=== PATIENT | male | born 1970 | race Caucasian/White ===

== ENCOUNTER → 2019-11-11 | Outpatient (CLI) | payer BC ==
[~2019-11-11] MED LIST: FLEXERIL10 MG PO; PREDNICOT20 MG PO; VICODIN 5/500 505 MG PO
== END | disposition home or self-care (01) ==
LOC: RAD 10:36
DX: S13.4XXA Sprain of ligaments of cervical spine, initial encounter (principal); X58.XXXA Exposure to other specified factors, initial encounter; Y93.89 Activity, other specified; Y92.89 Other specified places as the place of occurrence of the external cause; Y99.8 Other external cause status

== ENCOUNTER 2021-07-06 20:05 | Inpatient (IN) | payer BC ==
[~2021-07-06] VITALS: Ht 175.2 cm; Wt 116.6 kg
[2021-07-06 20:23] VITALS: BP 122/74
[2021-07-06 20:44] LABS: HEMATOCRIT 42.8 % (42.0-52.0); MEAN CORPUSCULAR HGB 29.9 pg (27.0-31.0); MEAN CORPUSCULAR HGB CONC 33.6 g/dl (33.0-37.0); MEAN PLATELET VOLUME 10.5 fl (9.6-12.3); PLATELET COUNT AUTOMATED 95 10*3/uL (130-400); RED BLOOD COUNT 4.81 10*6/uL (4.50-5.90); RED CELL DISTRI WIDTH 13.3 % (0-14.5)
[2021-07-06 20:52] VITALS: BP 113/69
[2021-07-06 20:59] LABS: ALBUMIN 3.5 gm/dl (3.1-4.5); ALKALINE PHOSPHATASE 91 U/L (45-117); BUN 23 mg/dl (7-24); CHLORIDE 104 mmol/L (98-107); POTASSIUM 4.4 mmol/L (3.5-5.1); SGOT/AST 47 IU/L (3-35); SGPT/ALT 43 U/L (12-78); SODIUM 134 mmol/L (136-145); TOTAL PROTEIN 7.3 gm/dL (6.4-8.2); WHITE BLOOD COUNT 1.8 10*3/uL (4.8-10.8)
[2021-07-06 21:04] LABS: TOTAL CELLS COUNTED 100 #CELLS
[2021-07-06 21:05] LABS: BURR CELLS FEW
[2021-07-06 21:08] LABS: PLATELET SUFFICIENCY LOW (NORMAL)
[2021-07-06 22:30] VITALS: BP 127/86
[2021-07-06 23:10] VITALS: BP 139/80
[2021-07-06] MEDS ORDERED: GLUCOPHAGE500 MG PO (23:19)
[2021-07-07] VITALS: BP 104/62
[2021-07-07 06:09] LABS: HEMATOCRIT 44.4 % (42.0-52.0); LYMPH # 0.4 10*3/uL (1.3-4.4); LYMPH % 18.3 % (27.0-41.0); MEAN CELL VOLUME 87.6 fl (80.0-94.0); MEAN CORPUSCULAR HGB 29.6 pg (27.0-31.0); MEAN CORPUSCULAR HGB CONC 33.8 g/dl (33.0-37.0); MEAN PLATELET VOLUME 10.5 fl (9.6-12.3); MONO # 0.1 10*3/uL (0.1-1.0); MONO % 6.4 % (3.0-9.0); NEUT # 1.5 10*3/uL (2.3-7.9); NEUT % 74.8 % (47.0-73.0); PLATELET COUNT AUTOMATED 99 10*3/uL (130-400); RED BLOOD COUNT 5.07 10*6/uL (4.50-5.90); RED CELL DISTRI WIDTH 13.1 % (0-14.5)
[2021-07-07 06:37] LABS: ALBUMIN 3.5 gm/dl (3.1-4.5); BUN 25 mg/dl (7-24); CHLORIDE 104 mmol/L (98-107); CREATININE 1.29 mg/dL (0.70-1.30); POTASSIUM 5.1 mmol/L (3.5-5.1); SGOT/AST 54 IU/L (3-35); SGPT/ALT 46 U/L (12-78); SODIUM 135 mmol/L (136-145); TOTAL PROTEIN 7.7 gm/dL (6.4-8.2)
[2021-07-07 06:41] LABS: ALKALINE PHOSPHATASE 100 U/L (45-117); LDH 334 U/L (87-241)
[2021-07-07 08:00] VITALS: BP 139/83
[2021-07-07 12:00] VITALS: BP 119/57
[2021-07-07 16:00] VITALS: BP 122/81
[2021-07-07 20:00] VITALS: BP 147/80
[2021-07-07 20:12] LABS: ABG BASE EXCESS 0.2 mmol/L (-2.0-2.0); ARTERIAL BLOOD GAS PH 7.415 (7.35-7.45); ARTERIAL BLOOD GAS PO2 51.8 (80-90)
[2021-07-08] VITALS: BP 127/63
[2021-07-08 06:37] LABS: HEMATOCRIT 44.7 % (42.0-52.0); LYMPH # 0.4 10*3/uL (1.3-4.4); LYMPH % 9.7 % (27.0-41.0); MEAN CELL VOLUME 87.8 fl (80.0-94.0); MEAN CORPUSCULAR HGB 30.1 pg (27.0-31.0); MEAN CORPUSCULAR HGB CONC 34.2 g/dl (33.0-37.0); MEAN PLATELET VOLUME 9.9 fl (9.6-12.3); MONO # 0.5 10*3/uL (0.1-1.0); MONO % 12.2 % (3.0-9.0); NEUT % 77.1 % (47.0-73.0); PLATELET COUNT AUTOMATED 130 10*3/uL (130-400); RED BLOOD COUNT 5.09 10*6/uL (4.50-5.90); RED CELL DISTRI WIDTH 13.1 % (0-14.5); WHITE BLOOD COUNT 3.9 10*3/uL (4.8-10.8)
[2021-07-08 06:50] LABS: ALBUMIN 3.3 gm/dl (3.1-4.5); CHLORIDE 105 mmol/L (98-107); POTASSIUM 4.6 mmol/L (3.5-5.1); SODIUM 138 mmol/L (136-145)
[2021-07-08 06:56] LABS: ALKALINE PHOSPHATASE 105 U/L (45-117); CREATININE 1.26 mg/dL (0.70-1.30); SGOT/AST 63 IU/L (3-35); SGPT/ALT 47 U/L (12-78); TOTAL PROTEIN 7.4 gm/dL (6.4-8.2)
[2021-07-08 07:02] LABS: BUN 37 mg/dl (7-24)
[2021-07-08 07:49] LABS: ABG BASE EXCESS -1.9 mmol/L (-2.0-2.0); ARTERIAL BLOOD GAS PH 7.415 (7.35-7.45); ARTERIAL BLOOD GAS PO2 59.4 (80-90)
[2021-07-08 08:00] VITALS: BP 140/88
[2021-07-08 12:00] VITALS: BP 117/78
[2021-07-08 16:00] VITALS: BP 111/72
[2021-07-08 20:00] VITALS: BP 149/90
[2021-07-09] VITALS: BP 134/78
[2021-07-09 02:21] LABS: ARTERIAL BLOOD GAS PH 7.412 (7.35-7.45); ARTERIAL BLOOD GAS PO2 58.9 (80-90)
[2021-07-09 03:52] VITALS: BP 135/95
[2021-07-09 06:10] LABS: ALBUMIN 3.4 gm/dl (3.1-4.5); ALKALINE PHOSPHATASE 108 U/L (45-117); BUN 43 mg/dl (7-24); CHLORIDE 105 mmol/L (98-107); CREATININE 1.32 mg/dL (0.70-1.30); POTASSIUM 4.3 mmol/L (3.5-5.1); SGOT/AST 53 IU/L (3-35); SGPT/ALT 44 U/L (12-78); SODIUM 139 mmol/L (136-145); TOTAL PROTEIN 7.8 gm/dL (6.4-8.2)
[2021-07-09 06:44] LABS: BASO % 0.2 % (0.0-1.0); HEMATOCRIT 46.8 % (42.0-52.0); LYMPH # 0.5 10*3/uL (1.3-4.4); LYMPH % 10.5 % (27.0-41.0); MEAN CELL VOLUME 90.2 fl (80.0-94.0); MEAN CORPUSCULAR HGB 29.9 pg (27.0-31.0); MEAN CORPUSCULAR HGB CONC 33.1 g/dl (33.0-37.0); MEAN PLATELET VOLUME 10.1 fl (9.6-12.3); MONO # 0.8 10*3/uL (0.1-1.0); MONO % 17.8 % (3.0-9.0); NEUT # 3.3 10*3/uL (2.3-7.9); NEUT % 70.4 % (47.0-73.0); PLATELET COUNT AUTOMATED 162 10*3/uL (130-400); RED BLOOD COUNT 5.19 10*6/uL (4.50-5.90); RED CELL DISTRI WIDTH 13.2 % (0-14.5); WHITE BLOOD COUNT 4.7 10*3/uL (4.8-10.8)
[2021-07-09 08:00] VITALS: BP 123/76
[2021-07-09 12:00] VITALS: BP 125/70
[2021-07-09 16:00] VITALS: BP 169/88
[2021-07-09 20:00] VITALS: BP 165/80
[2021-07-10] VITALS: BP 165/80
[2021-07-10 04:00] VITALS: BP 145/51
[2021-07-10 06:01] LABS: HEMATOCRIT 45.9 % (42.0-52.0); MEAN CELL VOLUME 89.3 fl (80.0-94.0); MEAN CORPUSCULAR HGB CONC 33.6 g/dl (33.0-37.0); PLATELET COUNT AUTOMATED 180 10*3/uL (130-400); RED BLOOD COUNT 5.14 10*6/uL (4.50-5.90); WHITE BLOOD COUNT 5.1 10*3/uL (4.8-10.8)
[2021-07-10 06:16] LABS: ALBUMIN 3.2 gm/dl (3.1-4.5); ALKALINE PHOSPHATASE 98 U/L (45-117); BUN 40 mg/dl (7-24); CHLORIDE 105 mmol/L (98-107); CPK 168 U/L (39-308); CREATININE 1.28 mg/dL (0.70-1.30); LDH 418 U/L (87-241); POTASSIUM 4.2 mmol/L (3.5-5.1); SGOT/AST 36 IU/L (3-35); SGPT/ALT 41 U/L (12-78); SODIUM 140 mmol/L (136-145); TOTAL PROTEIN 7.3 gm/dL (6.4-8.2)
[2021-07-10 07:41] LABS: PLATELET SUFFICIENCY NORMAL (NORMAL); TOTAL CELLS COUNTED 100 #CELLS
[2021-07-10 08:10] LABS: ABG BASE EXCESS 0.7 mmol/L (-2.0-2.0); ARTERIAL BLOOD GAS PH 7.456 (7.35-7.45)
[2021-07-10 08:12] VITALS: BP 155/88
[2021-07-10 12:00] VITALS: BP 131/66
[2021-07-10 16:00] VITALS: BP 123/70
[2021-07-10 20:00] VITALS: BP 114/78
[2021-07-11] VITALS: BP 138/68
[2021-07-11 04:00] VITALS: BP 128/68
[2021-07-11 06:05] LABS: ALBUMIN 2.8 gm/dl (3.1-4.5); ALKALINE PHOSPHATASE 89 U/L (45-117); BUN 36 mg/dl (7-24); CHLORIDE 105 mmol/L (98-107); CPK 158 U/L (39-308); CREATININE 1.19 mg/dL (0.70-1.30); LDH 363 U/L (87-241); POTASSIUM 4.1 mmol/L (3.5-5.1); SGOT/AST 27 IU/L (3-35); SGPT/ALT 36 U/L (12-78); SODIUM 138 mmol/L (136-145); TOTAL PROTEIN 6.9 gm/dL (6.4-8.2)
[2021-07-11 06:10] LABS: BASO % 0.1 % (0.0-1.0); HEMATOCRIT 44.6 % (42.0-52.0); LYMPH # 0.5 10*3/uL (1.3-4.4); MEAN CELL VOLUME 87.8 fl (80.0-94.0); MEAN CORPUSCULAR HGB 29.9 pg (27.0-31.0); MEAN CORPUSCULAR HGB CONC 34.1 g/dl (33.0-37.0); MEAN PLATELET VOLUME 9.8 fl (9.6-12.3); MONO # 0.8 10*3/uL (0.1-1.0); MONO % 10.9 % (3.0-9.0); NEUT # 5.7 10*3/uL (2.3-7.9); NEUT % 80.9 % (47.0-73.0); PLATELET COUNT AUTOMATED 170 10*3/uL (130-400); RED BLOOD COUNT 5.08 10*6/uL (4.50-5.90); RED CELL DISTRI WIDTH 12.8 % (0-14.5); WHITE BLOOD COUNT 7.1 10*3/uL (4.8-10.8)
[2021-07-11 08:00] VITALS: BP 135/75
[2021-07-11 08:43] LABS: ARTERIAL BLOOD GAS PH 7.462 (7.35-7.45); ARTERIAL BLOOD GAS PO2 52.3 (80-90)
[2021-07-11 12:00] VITALS: BP 121/73
[2021-07-11 16:00] VITALS: BP 129/74
[2021-07-11 20:00] VITALS: BP 140/76
[2021-07-12] VITALS: BP 138/68
[2021-07-12 04:00] VITALS: BP 140/78
[2021-07-12 05:16] LABS: ALBUMIN 2.7 gm/dl (3.1-4.5); BUN 37 mg/dl (7-24); CHLORIDE 106 mmol/L (98-107); CREATININE 1.06 mg/dL (0.70-1.30); LDH 365 U/L (87-241); POTASSIUM 4.3 mmol/L (3.5-5.1); SGOT/AST 20 IU/L (3-35); SGPT/ALT 35 U/L (12-78); SODIUM 137 mmol/L (136-145); TOTAL PROTEIN 6.8 gm/dL (6.4-8.2)
[2021-07-12 05:17] LABS: ALKALINE PHOSPHATASE 91 U/L (45-117)
[2021-07-12 05:27] LABS: CPK 105 U/L (39-308)
[2021-07-12 06:17] LABS: BASO % 0.2 % (0.0-1.0); EOS % 0.1 % (1.0-4.0); HEMATOCRIT 46.8 % (42.0-52.0); LYMPH # 0.5 10*3/uL (1.3-4.4); LYMPH % 4.9 % (27.0-41.0); MEAN CELL VOLUME 88.1 fl (80.0-94.0); MEAN CORPUSCULAR HGB 29.9 pg (27.0-31.0); MONO # 0.9 10*3/uL (0.1-1.0); MONO % 8.8 % (3.0-9.0); NEUT # 8.6 10*3/uL (2.3-7.9); NEUT % 84.4 % (47.0-73.0); PLATELET COUNT AUTOMATED 205 10*3/uL (130-400); RED BLOOD COUNT 5.31 10*6/uL (4.50-5.90); RED CELL DISTRI WIDTH 12.6 % (0-14.5); WHITE BLOOD COUNT 10.2 10*3/uL (4.8-10.8)
[2021-07-12 08:00] VITALS: BP 125/54
[2021-07-12 12:00] VITALS: BP 122/53
[2021-07-12 16:00] VITALS: BP 137/65
[2021-07-12 20:00] VITALS: BP 154/90
[2021-07-13] VITALS: BP 122/52
[2021-07-13 04:00] VITALS: BP 138/75
[2021-07-13 06:16] LABS: BASO % 0.2 % (0.0-1.0); EOS % 0.3 % (1.0-4.0); HEMATOCRIT 44.3 % (42.0-52.0); LYMPH # 0.5 10*3/uL (1.3-4.4); LYMPH % 4.4 % (27.0-41.0); MEAN CELL VOLUME 87.4 fl (80.0-94.0); MEAN CORPUSCULAR HGB 29.8 pg (27.0-31.0); MEAN CORPUSCULAR HGB CONC 34.1 g/dl (33.0-37.0); MEAN PLATELET VOLUME 10.2 fl (9.6-12.3); MONO # 0.8 10*3/uL (0.1-1.0); MONO % 6.9 % (3.0-9.0); NEUT % 86.7 % (47.0-73.0); PLATELET COUNT AUTOMATED 206 10*3/uL (130-400); RED BLOOD COUNT 5.07 10*6/uL (4.50-5.90); RED CELL DISTRI WIDTH 12.8 % (0-14.5); WHITE BLOOD COUNT 11.5 10*3/uL (4.8-10.8)
[2021-07-13 06:39] LABS: ALBUMIN 2.6 gm/dl (3.1-4.5); BUN 36 mg/dl (7-24); CHLORIDE 104 mmol/L (98-107); CREATININE 1.04 mg/dL (0.70-1.30); LDH 352 U/L (87-241); POTASSIUM 3.9 mmol/L (3.5-5.1); SGOT/AST 19 IU/L (3-35); SGPT/ALT 33 U/L (12-78); SODIUM 139 mmol/L (136-145); TOTAL PROTEIN 6.6 gm/dL (6.4-8.2)
[2021-07-13 06:40] LABS: ALKALINE PHOSPHATASE 85 U/L (45-117)
[2021-07-13 08:00] VITALS: BP 139/68
[2021-07-13 12:00] VITALS: BP 110/56
[2021-07-13 16:00] VITALS: BP 143/70
[2021-07-13 20:00] VITALS: BP 136/57
[2021-07-14] VITALS: BP 121/81
[2021-07-14 04:00] VITALS: BP 108/59
[2021-07-14 05:22] LABS: ALBUMIN 2.6 gm/dl (3.1-4.5); BUN 31 mg/dl (7-24); CHLORIDE 102 mmol/L (98-107); POTASSIUM 3.8 mmol/L (3.5-5.1); SODIUM 135 mmol/L (136-145)
[2021-07-14 05:26] LABS: ALKALINE PHOSPHATASE 73 U/L (45-117); CPK 147 U/L (39-308); CREATININE 0.89 mg/dL (0.70-1.30); LDH 299 U/L (87-241); SGOT/AST 16 IU/L (3-35); SGPT/ALT 32 U/L (12-78); TOTAL PROTEIN 6.7 gm/dL (6.4-8.2)
[2021-07-14 06:15] LABS: BASO % 0.1 % (0.0-1.0); EOS # 0.1 10*3/uL (0.0-0.4); EOS % 0.4 % (1.0-4.0); HEMATOCRIT 41.8 % (42.0-52.0); LYMPH # 0.5 10*3/uL (1.3-4.4); LYMPH % 3.9 % (27.0-41.0); MEAN CELL VOLUME 86.4 fl (80.0-94.0); MEAN CORPUSCULAR HGB 30.4 pg (27.0-31.0); MEAN CORPUSCULAR HGB CONC 35.2 g/dl (33.0-37.0); MEAN PLATELET VOLUME 10.5 fl (9.6-12.3); MONO # 0.9 10*3/uL (0.1-1.0); MONO % 7.6 % (3.0-9.0); NEUT % 86.6 % (47.0-73.0); PLATELET COUNT AUTOMATED 209 10*3/uL (130-400); RED BLOOD COUNT 4.84 10*6/uL (4.50-5.90); RED CELL DISTRI WIDTH 12.6 % (0-14.5); WHITE BLOOD COUNT 11.6 10*3/uL (4.8-10.8)
[2021-07-14 08:00] VITALS: BP 109/82
[2021-07-14 12:00] VITALS: BP 117/64
[2021-07-14 16:00] VITALS: BP 120/66
[2021-07-14 20:00] VITALS: BP 117/59
[2021-07-15] VITALS: BP 108/57
[2021-07-15 04:00] VITALS: BP 104/48
[2021-07-15 05:38] LABS: ALBUMIN 2.5 gm/dl (3.1-4.5); ALKALINE PHOSPHATASE 69 U/L (45-117); BUN 30 mg/dl (7-24); CHLORIDE 102 mmol/L (98-107); CPK 119 U/L (39-308); CREATININE 0.98 mg/dL (0.70-1.30); LDH 283 U/L (87-241); POTASSIUM 3.9 mmol/L (3.5-5.1); SGOT/AST 21 IU/L (3-35); SGPT/ALT 33 U/L (12-78); SODIUM 134 mmol/L (136-145); TOTAL PROTEIN 6.7 gm/dL (6.4-8.2)
[2021-07-15 06:05] LABS: BASO % 0.1 % (0.0-1.0); EOS # 0.1 10*3/uL (0.0-0.4); EOS % 0.7 % (1.0-4.0); LYMPH # 0.5 10*3/uL (1.3-4.4); LYMPH % 4.2 % (27.0-41.0); MEAN CELL VOLUME 86.8 fl (80.0-94.0); MEAN CORPUSCULAR HGB 29.8 pg (27.0-31.0); MEAN CORPUSCULAR HGB CONC 34.3 g/dl (33.0-37.0); MEAN PLATELET VOLUME 10.6 fl (9.6-12.3); MONO # 1.3 10*3/uL (0.1-1.0); MONO % 11.3 % (3.0-9.0); NEUT # 9.7 10*3/uL (2.3-7.9); NEUT % 82.4 % (47.0-73.0); PLATELET COUNT AUTOMATED 237 10*3/uL (130-400); RED BLOOD COUNT 4.84 10*6/uL (4.50-5.90); RED CELL DISTRI WIDTH 12.7 % (0-14.5); WHITE BLOOD COUNT 11.8 10*3/uL (4.8-10.8)
[2021-07-15 08:00] VITALS: BP 110/62
[2021-07-15 12:00] VITALS: BP 113/64
[2021-07-15 20:00] VITALS: BP 131/78
[2021-07-16] VITALS: BP 115/66
[2021-07-16 06:53] LABS: BASO % 0.1 % (0.0-1.0); EOS % 0.5 % (1.0-4.0); HEMATOCRIT 42.2 % (42.0-52.0); LYMPH # 0.4 10*3/uL (1.3-4.4); LYMPH % 4.8 % (27.0-41.0); MEAN CELL VOLUME 86.8 fl (80.0-94.0); MEAN CORPUSCULAR HGB 29.4 pg (27.0-31.0); MEAN CORPUSCULAR HGB CONC 33.9 g/dl (33.0-37.0); MEAN PLATELET VOLUME 10.4 fl (9.6-12.3); MONO # 1.1 10*3/uL (0.1-1.0); MONO % 12.4 % (3.0-9.0); NEUT # 7.1 10*3/uL (2.3-7.9); NEUT % 81.2 % (47.0-73.0); PLATELET COUNT AUTOMATED 222 10*3/uL (130-400); RED BLOOD COUNT 4.86 10*6/uL (4.50-5.90); RED CELL DISTRI WIDTH 12.6 % (0-14.5); WHITE BLOOD COUNT 8.8 10*3/uL (4.8-10.8)
[2021-07-16 07:24] LABS: ALBUMIN 2.5 gm/dl (3.1-4.5); BUN 28 mg/dl (7-24); CHLORIDE 103 mmol/L (98-107); CREATININE 0.88 mg/dL (0.70-1.30); POTASSIUM 3.9 mmol/L (3.5-5.1); SGOT/AST 23 IU/L (3-35); SGPT/ALT 43 U/L (12-78); SODIUM 136 mmol/L (136-145); TOTAL PROTEIN 6.7 gm/dL (6.4-8.2)
[2021-07-16 07:27] LABS: ALKALINE PHOSPHATASE 66 U/L (45-117); CPK 111 U/L (39-308); LDH 255 U/L (87-241)
[2021-07-16 08:00] VITALS: BP 101/46
[2021-07-16 12:00] VITALS: BP 125/68
[2021-07-16 16:00] VITALS: BP 136/73
[2021-07-16 20:00] VITALS: BP 125/85
[2021-07-17] VITALS: BP 124/54
[2021-07-17 06:06] LABS: BUN 26 mg/dl (7-24); CHLORIDE 103 mmol/L (98-107); CREATININE 0.95 mg/dL (0.70-1.30); POTASSIUM 3.8 mmol/L (3.5-5.1); SODIUM 135 mmol/L (136-145)
[2021-07-17 06:20] LABS: BASO % 0.1 % (0.0-1.0); EOS % 0.5 % (1.0-4.0); HEMATOCRIT 38.1 % (42.0-52.0); LYMPH # 0.6 10*3/uL (1.3-4.4); LYMPH % 6.6 % (27.0-41.0); MEAN CELL VOLUME 86.2 fl (80.0-94.0); MEAN CORPUSCULAR HGB 30.1 pg (27.0-31.0); MEAN CORPUSCULAR HGB CONC 34.9 g/dl (33.0-37.0); MEAN PLATELET VOLUME 10.8 fl (9.6-12.3); MONO # 1.2 10*3/uL (0.1-1.0); MONO % 14.6 % (3.0-9.0); NEUT # 6.6 10*3/uL (2.3-7.9); NEUT % 77.4 % (47.0-73.0); PLATELET COUNT AUTOMATED 223 10*3/uL (130-400); RED BLOOD COUNT 4.42 10*6/uL (4.50-5.90); RED CELL DISTRI WIDTH 12.4 % (0-14.5); WHITE BLOOD COUNT 8.5 10*3/uL (4.8-10.8)
[2021-07-17 08:00] VITALS: BP 100/45
[2021-07-17] MEDS ORDERED: PREDNISONE10 MG PO (12:59)
== END 2021-07-17 16:15 | disposition home or self-care (01) | DRG 871 ==
LOC: ED 20:05 → EDHOLD 21:32 → 4E 21:32 → ICCU 07-09 03:04 → 4E 07-15 14:44
PROVIDERS: Hospitalist; Internal Medicine; Internal Medicine Critical Care Medicine; Student in an Organized Health Care Education/Training Program; ADMIT Family Medicine; ATTEND Family Medicine
PROC: 5A0935A Assistance with Respiratory Ventilation, Less than 24 Consecutive Hours, High Flow/Velocity Cannula (ICD-10-PCS; principal; 2021-07-07)
PROC: 5A09357 Assistance with Respiratory Ventilation, Less than 24 Consecutive Hours, Continuous Positive Airway Pressure (ICD-10-PCS; 2021-07-08)
PROC: XW033E5 Introduction of Remdesivir Anti-infective into Peripheral Vein, Percutaneous Approach, New Technology Group 5 (ICD-10-PCS; 2021-07-08)
PROC: 5A09457 Assistance with Respiratory Ventilation, 24-96 Consecutive Hours, Continuous Positive Airway Pressure (ICD-10-PCS; 2021-07-09)
PROC: 5A0935A Assistance with Respiratory Ventilation, Less than 24 Consecutive Hours, High Flow/Velocity Cannula (ICD-10-PCS; 2021-07-10)
PROC: 5A0935A Assistance with Respiratory Ventilation, Less than 24 Consecutive Hours, High Flow/Velocity Cannula (ICD-10-PCS; 2021-07-11)
PROC: 5A09357 Assistance with Respiratory Ventilation, Less than 24 Consecutive Hours, Continuous Positive Airway Pressure (ICD-10-PCS; 2021-07-11)
PROC: 5A0935A Assistance with Respiratory Ventilation, Less than 24 Consecutive Hours, High Flow/Velocity Cannula (ICD-10-PCS; 2021-07-12)
PROC: 5A09357 Assistance with Respiratory Ventilation, Less than 24 Consecutive Hours, Continuous Positive Airway Pressure (ICD-10-PCS; 2021-07-12)
PROC: 5A0935A Assistance with Respiratory Ventilation, Less than 24 Consecutive Hours, High Flow/Velocity Cannula (ICD-10-PCS; 2021-07-13)
PROC: 5A09357 Assistance with Respiratory Ventilation, Less than 24 Consecutive Hours, Continuous Positive Airway Pressure (ICD-10-PCS; 2021-07-13)
PROC: 5A0935A Assistance with Respiratory Ventilation, Less than 24 Consecutive Hours, High Flow/Velocity Cannula (ICD-10-PCS; 2021-07-14)
PROC: 5A09357 Assistance with Respiratory Ventilation, Less than 24 Consecutive Hours, Continuous Positive Airway Pressure (ICD-10-PCS; 2021-07-14)
PROC: 5A0935A Assistance with Respiratory Ventilation, Less than 24 Consecutive Hours, High Flow/Velocity Cannula (ICD-10-PCS; 2021-07-15)
PROC: 5A09357 Assistance with Respiratory Ventilation, Less than 24 Consecutive Hours, Continuous Positive Airway Pressure (ICD-10-PCS; 2021-07-15)
PROC: 5A0945A Assistance with Respiratory Ventilation, 24-96 Consecutive Hours, High Flow/Velocity Cannula (ICD-10-PCS; 2021-07-16)
PROC: 5A09357 Assistance with Respiratory Ventilation, Less than 24 Consecutive Hours, Continuous Positive Airway Pressure (ICD-10-PCS; 2021-07-16)
DX: A41.9 Sepsis, unspecified organism (principal); U07.1 COVID-19; J12.82 Pneumonia due to coronavirus disease 2019; N17.0 Acute kidney failure with tubular necrosis; J96.01 Acute respiratory failure with hypoxia; E87.1 Hypo-osmolality and hyponatremia; N18.31 Chronic kidney disease, stage 3a; E11.22 Type 2 diabetes mellitus with diabetic chronic kidney disease; E11.65 Type 2 diabetes mellitus with hyperglycemia; R74.01 Elevation of levels of liver transaminase levels; Z88.1 Allergy status to other antibiotic agents; Z88.0 Allergy status to penicillin; Z79.84 Long term (current) use of oral hypoglycemic drugs; T38.0X5A Adverse effect of glucocorticoids and synthetic analogues, initial encounter; Y92.89 Other specified places as the place of occurrence of the external cause

== ENCOUNTER 2022-08-12 08:17 | Emergency (ER) | payer OTHER, BC ==
[~2022-08-12] VITALS: Wt 113.4 kg
[~2022-08-12 08:17] MED LIST changes: +GLUCOPHAGE500 MG PO; +PREDNISONE10 MG PO
== END 2022-08-12 12:24 | disposition home or self-care (01) ==
LOC: ED 08:17
DX: S01.81XA Laceration without foreign body of other part of head, initial encounter (principal); S60.222A Contusion of left hand, initial encounter; Z88.0 Allergy status to penicillin; Z88.1 Allergy status to other antibiotic agents; V49.88XA Car occupant (driver) (passenger) injured in other specified transport accidents, initial encounter; Y93.89 Activity, other specified; Y92.413 State road as the place of occurrence of the external cause; Y99.9 Unspecified external cause status

== ENCOUNTER → 2025-03-22 | Outpatient (CLI) | payer SELFPAY | END | disposition home or self-care (01) | LOC: LAB 14:13 | PROVIDERS: ATTEND Family Medicine | DX: E11.9 Type 2 diabetes mellitus without complications (principal); R79.89 Other specified abnormal findings of blood chemistry; R53.83 Other fatigue ==